=== PATIENT | female | born 1970 | race Caucasian/White ===

== ENCOUNTER → 2017-02-23 | Outpatient (CLI) | payer BC ==
[2017-02-23 16:42] LABS: Appearance,Urine Cloudy (Clear); Bacteria,Urine Occasional /hpf; Bilirubin,Urine Negative (Negative); Glucose,Urine (UA) Trace (Negative); Ketones,Urine Negative (Negative); Leukocyte Esterase,Urine Large (Negative); Mucus,Urine Rare /hpf; Nitrite,Urine Positive (Negative); PH, Urine 6.5 (5.0-8.0); Particle Count 11632; Protein,Urine Negative (Negative); RBC,Urine 5 /hpf (0-5); Specific Gravity,Urine 1.015 (1.001-1.035); Squamous Epithelial Cell,Urine 1 /hpf (0-4); UA Billing (MACRO vs. MICRO) MICRO; Urobilinogen,Urine <2.0 mg/dL (<2.0); WBC,Urine 25 /hpf (0-5)
[2017-02-24 07:01] LABS: HIV-1/HIV-2 Ab Screen NONREAC (NON REAC)
== END ==
LOC: LABWHC1 16:17
PROVIDERS: ATTEND Obstetrics & Gynecology
DX: R30.0 Dysuria (principal); Z11.3 Encounter for screening for infections with a predominantly sexual mode of transmission
CPT/HCPCS: 36415; 81001; 86780; 87077; 87086; 87186; 87389

== ENCOUNTER → 2018-05-19 | Outpatient (CLI) | payer BC ==
--- NOTE | 2018-05-21 10:36 | MM ---
Reason for exam: screening (asymptomatic). Last mammogram was performed 2 years and 3 months ago. History: Patient is nulliparous. Family history of breast cancer in mother at age 53. Silicone gel implants in both breasts, 2010. Retro-pectoral saline implants in both breasts, September 2003. Taking hormonal contraceptives for 16 years. Physical Findings: A clinical breast exam by your physician is recommended on an annual basis and results should be correlated with mammographic findings. MG 3D Screen Mammo Imp/Cad Bilateral CC, MLO, and ID view(s) were taken. Prior study comparison: February 20, 2016, bilateral MG 3d diag mammo imp w/cad [facility]. September 22, 2014, bilateral MG diagnostic mammo w CAD [facility]. The breast tissue is heterogeneously dense. This may lower the sensitivity of mammography. There is chronic nodularity in the left breast. Retropectoral silicone implants. No significant changes when compared with prior studies. ASSESSMENT: Negative, BI-RAD 1 RECOMMENDATION: Routine screening mammogram of both breasts in 1 year.
== END | disposition home or self-care (01) ==
LOC: RADMAMWWP 08:47
PROVIDERS: ATTEND Obstetrics & Gynecology
DX: Z12.31 Encounter for screening mammogram for malignant neoplasm of breast (principal)
CPT/HCPCS: 77063; 77067

== ENCOUNTER → 2019-08-17 | Outpatient (CLI) | payer BC ==
--- NOTE | 2019-08-18 14:37 | MM ---
Reason for exam: screening (asymptomatic). Last mammogram was performed 1 year and 3 months ago. History: Patient is nulliparous. Family history of breast cancer in mother at age 53. Silicone gel implants in both breasts, 2010. Retro-pectoral saline implants in both breasts, September 2003. Taking hormonal contraceptives for 16 years. Physical Findings: A clinical breast exam by your physician is recommended on an annual basis and results should be correlated with mammographic findings. MG 3D Screen Mammo Imp/Cad Bilateral CC, MLO, and ID view(s) were taken. Prior study comparison: May 19, 2018, bilateral MG 3d screen mammo imp/cad. February 20, 2016, bilateral MG 3d diag mammo imp w/cad [facility]. The breast tissue is extremely dense which could obscure a lesion on mammography. No suspicious abnormality. Bilateral retropectaol silicone implants. No significant changes when compared with prior studies. ASSESSMENT: Negative, BI-RAD 1 RECOMMENDATION: Routine screening mammogram of both breasts in 1 year.
== END | disposition home or self-care (01) ==
LOC: RADMAMWWP 08:33
PROVIDERS: ATTEND Obstetrics & Gynecology
DX: Z12.31 Encounter for screening mammogram for malignant neoplasm of breast (principal); Z98.82 Breast implant status
CPT/HCPCS: 77063; 77067

== ENCOUNTER → 2019-08-17 | Outpatient (CLI) | payer BC ==
[2019-08-17 08:58] LABS: Basophils % (A) 1 %; Eosinophils # (A) 0.2 k/uL (0-0.7); Eosinophils % (A) 3 %; HCT 44.2 % (34.0-46.0); HGB 14.4 gm/dL (11.4-16.0); Lymphocytes # (A) 1.9 k/uL (1.0-4.8); Lymphocytes % (A) 42 %; MCH 30.4 pg (25.0-35.0); MCHC 32.7 g/dL (31.0-37.0); MCV 93.2 fL (80.0-100.0); Mean Platelet Volume 6.1; Monocytes # (A) 0.3 k/uL (0-1.0); Monocytes % (A) 6 %; Neutrophils # (A) 2.1 k/uL (1.3-7.7); Neutrophils % (A) 46 %; Platelet Count 302 k/uL (150-450); RBC 4.74 m/uL (3.80-5.40); WBC 4.6 k/uL (3.8-10.6)
[2019-08-17 16:08] LABS: African American GFR (CKD) 99.6 (60.0-200.0); Albumin 4.1 g/dL (3.80-4.90); Albumin/Globulin Ratio 2.28 (1.60-3.17); BUN/Creat Ratio 16.25 Ratio (12.00-20.00); Calcium 9.2 mg/dL (8.7-10.3); Chol/HDL Ratio 2.07; Globulin 1.8 g/dL (1.6-3.3); Total Bilirubin 0.6 mg/dL (0.2-1.2); Total Protein 5.9 g/dL (6.2-8.2)
[2019-08-17 16:15] LABS: T4, Free (Free Thyroxine) 1.2 ng/dL (0.80-1.80)
[2019-08-17 17:42] LABS: Hemoglobin A1C 4.8 % (4.0-6.0)
== END | disposition home or self-care (01) ==
LOC: LABWHC1 08:16
PROVIDERS: ATTEND Internal Medicine Critical Care Medicine
DX: Z00.00 Encounter for general adult medical examination without abnormal findings (principal); J45.909 Unspecified asthma, uncomplicated
CPT/HCPCS: 36415; 80053; 80061; 82306; 83036; 84439; 84443; 85025

== ENCOUNTER → 2019-10-03 | Outpatient (CLI) | payer BC ==
[2019-10-03 10:18] LABS: Basophils % (A) 0 %; Eosinophils # (A) 0.1 k/uL (0-0.7); Eosinophils % (A) 3 %; HCT 40.9 % (34.0-46.0); Lymphocytes # (A) 1.7 k/uL (1.0-4.8); Lymphocytes % (A) 36 %; MCH 31.7 pg (25.0-35.0); MCHC 34.3 g/dL (31.0-37.0); MCV 92.3 fL (80.0-100.0); Mean Platelet Volume 5.7; Monocytes # (A) 0.3 k/uL (0-1.0); Monocytes % (A) 7 %; Neutrophils # (A) 2.4 k/uL (1.3-7.7); Neutrophils % (A) 52 %; Platelet Count 285 k/uL (150-450); RBC 4.43 m/uL (3.80-5.40); RDW 11.9 % (11.5-15.5); WBC 4.6 k/uL (3.8-10.6)
== END | disposition home or self-care (01) ==
LOC: LABWHC1 09:04
PROVIDERS: ATTEND Obstetrics & Gynecology
DX: Z01.812 Encounter for preprocedural laboratory examination (principal)
CPT/HCPCS: 36415; 85025; 93005

== ENCOUNTER 2019-10-11 06:36 | Day surgery (SDC) | payer BC ==
[2019-10-10 09:34] VITALS: BMI 21.0
--- NOTE | 2019-10-10 17:50 | P.HPOB ---
History of Present Illness H&P Date: 10/10/19 Chief Complaint: Menorrhagia, Family planning This is a 49 y.o. female, 0, who presents for laparoscopic tubal ligation via fulgaration for family planning along with a dilatation and curettage with hysteroscopy and Novasure endometrial ablation due to history of heavy menses when she is off of BCPs. She would like to go off of the pills due to concern for cancer. Ultrasound showed a uterus measuring 7.9 x 4 x 2.3 cm. Both ovaries were normal. OB Hx: G0. 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 History of 1 abnormal pap in 1995, s/p colposcopy & cryo. History of heavy crampy menses off of the pill. 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 Review of Systems Constitutional: Reports night sweats (occ), Denies chills, Denies fever Ears, nose, mouth and throat: Denies headache, Denies sore throat Cardiovascular: Denies chest pain, Denies shortness of breath Gastrointestinal: Reports bloating, Reports constipation, Denies abdominal pain, Denies diarrhea, Denies nausea, Denies vomiting Genitourinary: Reports dysmenorrhea, Reports urinary frequency, Reports vaginal dryness, Denies hematuria Menstruation: Reports period heavy (history) Musculoskeletal: Denies myalgias Integumentary: Denies pruritus, Denies rash Neurological: Denies numbness, Denies weakness Psychiatric: Reports anxiety, Reports insomnia Endocrine: Denies fatigue, Denies weight change Past Medical History Past Medical History: Asthma Additional Past Medical History / Comment(s): interstistial cystitis History of Any Multi-Drug Resistant Organisms: None Reported Past Surgical History: Breast Surgery (augmentation x 2), Orthopedic Surgery Additional Past Surgical History / Comment(s): torn cartilage rt wrist, 3 surgeries rt knee ACL repair,. D&C, maninder breast implants: D&C, hysteroscopy, attempted ablation-2013 Past Anesthesia/Blood Transfusion Reactions: Motion Sickness Past Psychological History: No Psychological Hx Reported Smoking Status: Never smoker Past Alcohol Use History: Rare Past Drug Use History: None Reported - Past Family History Mother Family Medical History: Cancer Additional Family Medical History / Comment(s): ovarian, colon, breast Father Family Medical History: Cancer Additional Family Medical History / Comment(s): pancreatic Medications and Allergies Home Medications Medication Instructions Recorded Confirmed Type Albuterol Inhaler [Ventolin 1 - 2 puff INHALATION Q6HR PRN 08/29/15 10/10/19 History Inhaler] Control 1 tab PO DAILY 08/29/15 10/10/19 History Calcium Carbonate [Calcium] 600 mg PO DAILY 08/29/15 10/10/19 History Pentosan Polysulfate Sodium 100 mg PO BID 10/10/19 10/10/19 History [Elmiron] Pilocarpine (Unkn Dose) 1 dose PO DAILY 10/10/19 10/10/19 History Allergies Allergy/AdvReac Type Severity Reaction Status Date / Time No Known Allergies Allergy Verified 10/10/19 09:24 Exam Osteopathic Statement: *. No significant issues noted on an osteopathic structural exam other than those noted in the History and Physical/Consult. Intake and Output 10/10/19 10/10/19 10/10/19 06:59 14:59 22:59 Other: Weight 52.163 kg HEENT: within normal limits Heart: regular rate and rhythm Lungs: clear to auscultation bilaterally Abdomen: soft, non-tender Pelvic exam: uterus anteverted, non-tender, no adnexal masses or tenderness noted. Extremities: neg. Homans. Assessment and Plan (1) Menorrhagia Status: Acute Code(s): N92.0 - EXCESSIVE AND FREQUENT MENSTRUATION WITH REGULAR CYCLE SNOMED Code(s): 943344190 (2) Family planning Status: Acute Code(s): Z30.09 - ENCOUNTER FOR OTH GENERAL CNSL AND ADVICE ON CONTRACEPTION SNOMED Code(s): 622305826 Plan: Proceed with dilatation and curettage, hysterosocpy, Novasure endometrial ablation with laparoscopic bilateral tubal ligation via fulgaration. I have discussed the risks, benefits, and alternative therapies for the above- mentioned procedure and for both sedation/anesthesia as well as necessary blood products administration, if indicated, as they pertain to this patient. The patient has indicated her understanding and acceptance of the risks and procedures discussed.
[~2019-10-11 06:36] MED LIST: DEXAMETHASONE SOD PHOSPHATE 10 MG/ML 1 ML VIAL IV ONE; HYDROmorphone 0.5 MG/0.5 ML SYRINGE IVP PRN; LACTATED RINGERS 1,000 ML IV SCH; LIDOCAINE 1% 20 ML VIAL (10MG/ML) FOR IV START INTRADERMA PRN; Pre Op ABX Message 1 EACH MISC MISCELLANE ONE
[2019-10-11 07:12] VITALS: RESP 16
[2019-10-11] MEDS: ONDANSETRON 4 MG/2 ML VIAL IVP ONE ×2 (07:14→09:50)
[2019-10-11] MEDS ORDERED: PROPOFOL 10 MG/ML 20 ML VIAL IV ONE (07:26)
[2019-10-11] MEDS ORDERED: KETOROLAC 30 MG/ML 1 ML VIAL ONE (07:26)
[2019-10-11] MEDS ORDERED: GLYCOPYRROLATE 0.2 MG/ML 2 ML VIAL ONE (07:26)
[2019-10-11] MEDS ORDERED: fentaNYL (PF) 50 MCG/ML 2 ML AMP ONE (07:26)
[2019-10-11] MEDS ORDERED: MIDAZOLAM 2 MG/2 ML VIAL ONE ×2 (07:26)
[2019-10-11] MEDS ORDERED: LIDOCAINE 1% INJ 10MG/ML (20 ML MDV) ONE (07:26)
[2019-10-11] MEDS ORDERED: NEOSTIGMINE 1 MG/ML 10 ML VIAL ONE (07:26)
[2019-10-11] MEDS ORDERED: ROCURONIUM BROMIDE 10 MG/ML 10 ML VIAL IV ONE (07:26)
[2019-10-11] MEDS ORDERED: BUPIVACAINE (PF) 0.25% 30 ML VIAL SQ ONE ×2 (08:16→08:24)
[2019-10-11] MEDS ORDERED: LACTATED RINGERS 1,000 ML IV ONE (08:28)
[2019-10-11 08:44] VITALS: TEMP 97
--- NOTE | 2019-10-11 09:09 | P.OP ---
Date of Procedure: 10/11/19 Preoperative Diagnosis: Menorrhagia Family planning Postoperative Diagnosis: Same Procedure(s) Performed: Dilation and curettage with hysteroscopy NovaSure endometrial ablation Laparoscopic bilateral tubal ligation via fulguration Anesthesia: VIVI Surgeon: Mery Mansfield Estimated Blood Loss (ml): 10 Pathology: other (Endometrial curettings) Condition: stable Disposition: same day Indications for Procedure: This is a 49 y.o. female, 0, who presents for laparoscopic tubal ligation via fulgaration for family planning along with a dilatation and curettage with hysteroscopy and Novasure endometrial ablation due to history of heavy menses when she is off of BCPs. She would like to go off of the pills due to concern for cancer. Ultrasound showed a uterus measuring 7.9 x 4 x 2.3 cm. Both ovaries were normal. Operative Findings: Uterus is sounded to 8 cm. Cervix is sounded to 3 cm. Upon hysteroscopy, several small polyps were visualized and a dyssynchronous endometrial pattern was noted. Minimal endometrial curettings were obtained. Normal uterus tubes and ovaries are noted. Appendix is visualized and appears normal. Description of Procedure: The patient is taken to the operating room. She is placed in the dorsal lithotomy position after general anesthesia was given. She is prepped and draped in the normal sterile fashion. Bladder is drained with a catheter and then removed. Pelvic exam is performed under anesthesia. Uterus is found to be anteverted with no adnexal masses. She is placed in slight Trendelenburg position. A right angle retractor is used to visualize the cervix. The anterio r lip of the cervix is grasped with a single-tooth tenaculum. Cervix is sounded to 3 cm. Uterus is sounded to 8 cm. Cervix is gently dilated with Preciado dilators until a hysteroscope could be passed. Hysteroscopy is performed using normal saline. The above noted findings are noted. Next a polyp forceps is introduced. Minimal tissue was obtained. Next medium-sized size sharp curette was placed. A minimal amount of endometrial curettings were obtained. Next NovaSure array was inserted into the endometrial cavity. Length was set at 5 cm and width was determined to be 2.3 cm. Since the width was under the lowest setting, the width was set at 2.5 cm on the machine. Next cavity assessment was completed and passed on the first try. Next NovaSure array was fired at 69 W for 66 seconds. Next the array was removed, inspected and then discarded. Next the hysteroscope was reinserted. Uniform charring was noted. Pictures were taken. Hysteroscope was removed. Single-tooth tenaculum was removed from the anterior lip of the cervix. Minimal bleeding was noted. All other instruments removed from the vagina. Sponge counts were correct. Patient is taken to recovery room in stable condition.
[2019-10-11 09:50] VITALS: PULSE 74
[2019-10-11 10:04] VITALS: BP 113/62
== END 2019-10-11 11:16 | disposition home or self-care (01) ==
LOC: OR 06:36
PROVIDERS: ATTEND Obstetrics & Gynecology
DX: N92.0 Excessive and frequent menstruation with regular cycle (principal); Z30.2 Encounter for sterilization; N30.10 Interstitial cystitis (chronic) without hematuria; J45.909 Unspecified asthma, uncomplicated; Z80.41 Family history of malignant neoplasm of ovary; Z80.0 Family history of malignant neoplasm of digestive organs; Z80.3 Family history of malignant neoplasm of breast; Z79.3 Long term (current) use of hormonal contraceptives; Z79.899 Other long term (current) drug therapy
CPT/HCPCS: 81025; 88305; 58563; 58670; J2250; J1100; J2710; J2405; J2001; J3010; J1885; J2704

== ENCOUNTER 2019-10-11 16:30 | Emergency (ER) | payer BC ==
[2019-10-11 16:44] VITALS: RESP 18
[2019-10-11] MEDS ORDERED: methylPREDNISolone SOD SUCCI 125 MG/2 ML VIAL IV STA (17:46)
[2019-10-11] MEDS ORDERED: HYDROmorphone 0.5 MG/0.5 ML SYRINGE IVP STA (17:46)
[2019-10-11] MEDS ORDERED: SODIUM CHLORIDE 0.9% 1,000 ML IV STA (17:46)
[2019-10-11] MEDS ORDERED: diphenhydrAMINE 50 MG/ML 1 ML VIAL IVP STA (17:46)
--- NOTE | 2019-10-11 19:35 | ED ---
General Adult HPI - General Chief complaint: Urogenital Stated complaint: Post surgery/poss allergic from the prep/very pain Time Seen by Provider: 10/11/19 17:25 Source: patient, RN notes reviewed, old records reviewed Mode of arrival: wheelchair Limitations: no limitations - History of Present Illness Initial comments: 49-year-old female patient presents to ED for chief complaint of external vaginal burning. Patient reports that this morning she had a tubal ligation, uterine ablation and D&C. Patient reports that as a progress she's been having lots of burning and discomfort around her perivaginal region. Denies any other complaints at this time. Systemic: Pt denies fatigue, fever/chills, rash. Pt denies weakness, night sweats, weight loss. Neuro: Pt denies headache, visual disturbances, syncope or pre-syncope. HEENT: Pt denies ocular discharge or irritation, otalgia, rhinorrhea, pharyngitis or notable lymphadenopathy. Cardiopulmonary: Pt denies chest pain, SOB, heart palpitations, dyspnea on exertion. Abdominal/GI: Pt denies abdominal pain, n/v/d. : Pt denies dysuria, burning w/ urination, frequency/urgency. Denies new onset urinary or bowel incontinence. MSK: Pt denies myalgia, loss of strength or function in extremities. Neuro: Pt denies new onset weakness, paresthesias. - Related Data Home Medications Medication Instructions Recorded Confirmed Albuterol Inhaler [Ventolin 1 - 2 puff INHALATION Q6HR PRN 08/29/15 10/11/19 Inhaler] Control 1 tab PO DAILY 08/29/15 10/11/19 Calcium Carbonate [Calcium] 600 mg PO DAILY 08/29/15 10/11/19 Pentosan Polysulfate Sodium 100 mg PO BID 10/10/19 10/11/19 [Elmiron] Pilocarpine (Unkn Dose) 1 dose PO DAILY 10/10/19 10/11/19 Previous Rx's Medication Instructions Recorded HYDROcodone/APAP 5-325MG [Datto 1 tab PO Q4HR PRN 3 Days #18 tab 10/11/19 5-325] predniSONE 50 mg PO DAILY #4 tab 10/11/19 Allergies Allergy/AdvReac Type Severity Reaction Status Date / Time No Known Allergies Allergy Verified 10/11/19 16:44 Review of Systems ROS Statement: Those systems with pertinent positive or pertinent negative responses have been documented in the HPI. ROS Other: All systems not noted in ROS Statement are negative. Past Medical History Past Medical History: Asthma History of Any Multi-Drug Resistant Organisms: None Reported Past Surgical History: Ablation, Orthopedic Surgery, Tubal Ligation Past Psychological History: No Psychological Hx Reported Smoking Status: Never smoker Past Alcohol Use History: None Reported Past Drug Use History: None Reported General Exam - General Exam Comments Initial Comments: Constitutional: NAD, AOX3, Pt has pleasant affect. HEENT: NC/AT, trachea midline, neck supple, no lymphadenopathy. Posterior pharynx non erythematous, without exudates. External ears appear normal, without discharge. Mucous membranes moist. Eyes PERRLA, EOM intact. There is no scleral icterus. No pallor noted. Cardiopulmonary: RRR, no murmurs, rubs or gallops, no JVD noted. Lungs CTAB in anterior and posterior luna. No peripheral edema. Abdominal exam: Abdomen soft and non-distended. Abdomen mild tender around the incision sites. Clean dry, non-erythematous, no discharge. Bowel sounds active in LLQ. No hepatosplenomegaly. No ecchymosis Neuro: CN II-XII grossly intact. No nuchal rigidity. No raccon eyes, no glynn sign, no hemotympanum. No cervical spinal tenderness. MSK: No posterior calf tenderness bilaterally, homans sign negative bilaterally. Posterior tibialis and radial pulse +2 bilaterally. Sensation intact in upper and lower extremities. Full active ROM in upper and lower extremities, 5/5 stregnth. : External vaginal exam displayed mild amount of edema, erythema. No drainage, nontender to palpation. Chaperoned by ANGELIKA Blevins. Limitations: no limitations Course Vital Signs 10/11/19 16:41 Temperature 97.8 F Pulse Rate 70 Respiratory 18 Rate Blood Pressure 134/69 O2 Sat by Pulse 99 Oximetry Medical Decision Making - Medical Decision Making 49-year-old female patient presents to ED for painful burning around vaginal region following procedure earlier today. Patient will signs stable, afebrile. External vaginal exam displayed mild erythema, edema. Patient with a sprain. Contact dermatitis-like syndrome after the ChloraPrep was used. Patient feeling much improved with steroids, Benadryl, analgesia. Patient will be discharged per steroid treatment. Will follow up with primary care provider tomorrow and will return to ER if condition worsens. Case discussed with Dr. Powers. Disposition Clinical Impression: Contact dermatitis Disposition: HOME SELF-CARE Condition: Stable Instructions (If sedation given, give patient instructions): Contact Dermatitis (ED) Additional Instructions: Follow-up with Dr. Mansfield tomorrow. Use Benadryl as needed for symptoms. Take steroids as directed. Return to ER if condition worsens in any way. Prescriptions: predniSONE 50 mg PO DAILY #4 tab Is patient prescribed a controlled substance at d/c from ED?: No Referrals: Deandre Stanley DO [Primary Care Provider] - 1-2 days
[2019-10-11 20:56] VITALS: BP 124/87; PULSE 87; TEMP 98
== END 2019-10-11 20:56 | disposition home or self-care (01) ==
LOC: EC 16:30
DX: L25.9 Unspecified contact dermatitis, unspecified cause (principal); J45.909 Unspecified asthma, uncomplicated; Z79.3 Long term (current) use of hormonal contraceptives; Z79.51 Long term (current) use of inhaled steroids; Z98.51 Tubal ligation status; Z98.890 Other specified postprocedural states
CPT/HCPCS: 99284; 96374; 96375 ×2; 96361 ×2; J1200; J2930; J1170

== ENCOUNTER → 2020-10-31 | Outpatient (CLI) | payer BC ==
[2020-10-31 09:27] LABS: Basophils % (A) 0 %; Eosinophils # (A) 0.1 k/uL (0-0.7); Eosinophils % (A) 5 %; HCT 40.4 % (34.0-46.0); HGB 13.9 gm/dL (11.4-16.0); Lymphocytes # (A) 1.4 k/uL (1.0-4.8); Lymphocytes % (A) 47 %; MCH 31.3 pg (25.0-35.0); MCHC 34.5 g/dL (31.0-37.0); MCV 90.7 fL (80.0-100.0); Mean Platelet Volume 6.5; Monocytes # (A) 0.3 k/uL (0-1.0); Monocytes % (A) 9 %; Neutrophils # (A) 1.1 k/uL (1.3-7.7); Neutrophils % (A) 37 %; Platelet Count 238 k/uL (150-450); RBC 4.45 m/uL (3.80-5.40); RDW 11.7 % (11.5-15.5); WBC 3.1 k/uL (3.8-10.6)
[2020-10-31 09:50] LABS: T4, Free (Free Thyroxine) 0.89 ng/dL (0.78-2.19)
--- NOTE | 2020-11-05 11:16 | MM ---
Reason for exam: screening (asymptomatic). Last mammogram was performed 1 year and 2 months ago. History: Patient is nulliparous. Family history of breast cancer in mother at age 53. Silicone gel implants in both breasts, 2010. Retro-pectoral saline implants in both breasts, September 2003. Taking hormonal contraceptives for 16 years. Physical Findings: A clinical breast exam by your physician is recommended on an annual basis and results should be correlated with mammographic findings. MG 3D Screen Mammo Imp/Cad Bilateral CC and MLO view(s) were taken. Prior study comparison: August 17, 2019, bilateral MG 3d screen mammo imp/cad. May 19, 2018, bilateral MG 3d screen mammo imp/cad. The breast tissue is heterogeneously dense. This may lower the sensitivity of mammography. There is chronic nodularity in the left breast. Retropectoral silicone implants. No significant changes when compared with prior studies. ASSESSMENT: Negative, BI-RAD 1 RECOMMENDATION: Routine screening mammogram of both breasts in 1 year.
== END | disposition home or self-care (01) ==
LOC: RADMAMWWP 08:45
PROVIDERS: ATTEND Obstetrics & Gynecology
DX: Z12.31 Encounter for screening mammogram for malignant neoplasm of breast (principal); Z98.82 Breast implant status; J45.909 Unspecified asthma, uncomplicated; Z79.899 Other long term (current) drug therapy
CPT/HCPCS: 77063; 77067; 82306; 82947; 83036; 84439; 84443; 85025

== ENCOUNTER → 2020-11-29 | Outpatient (CLI) | payer BC ==
[2020-11-29 10:01] LABS: HCT 40.4 % (34.0-46.0); HGB 13.8 gm/dL (11.4-16.0); MCH 31.1 pg (25.0-35.0); MCHC 34.1 g/dL (31.0-37.0); MCV 91.2 fL (80.0-100.0); Mean Platelet Volume 6.5; Platelet Count 238 k/uL (150-450); RBC 4.43 m/uL (3.80-5.40); RDW 11.7 % (11.5-15.5); WBC 3.5 k/uL (3.8-10.6)
== END | disposition home or self-care (01) ==
LOC: LABWHC1 09:14
PROVIDERS: ATTEND Obstetrics & Gynecology
DX: D72.819 Decreased white blood cell count, unspecified (principal)
CPT/HCPCS: 36415; 85027

== ENCOUNTER → 2021-12-11 | Outpatient (CLI) | payer BC ==
--- NOTE | 2021-12-12 12:31 | MM ---
Reason for exam: screening (asymptomatic). Last mammogram was performed 1 year and 1 month ago. History: Patient is nulliparous. Family history of breast cancer in mother at age 53. Silicone gel implants in both breasts, 2010. Retro-pectoral saline implants in both breasts, September 2003. Taking hormonal contraceptives for 16 years. Physical Findings: A clinical breast exam by your physician is recommended on an annual basis and results should be correlated with mammographic findings. MG 3D Screen Mammo Imp/Cad Bilateral CC, MLO, and ID view(s) were taken. Prior study comparison: October 31, 2020, bilateral MG 3d screen mammo imp/cad. August 17, 2019, bilateral MG 3d screen mammo imp/cad. The breast tissue is extremely dense which could obscure a lesion on mammography. There are benign appearing round calcifications bilaterally. There is no discrete abnormality. ASSESSMENT: Benign, BI-RAD 2 RECOMMENDATION: Routine screening mammogram of both breasts in 1 year.
== END | disposition home or self-care (01) ==
LOC: RADMAMWWP 13:43
PROVIDERS: ATTEND Obstetrics & Gynecology
DX: Z12.31 Encounter for screening mammogram for malignant neoplasm of breast (principal); Z80.3 Family history of malignant neoplasm of breast
CPT/HCPCS: 77063; 77067

== ENCOUNTER → 2023-05-06 | Outpatient (CLI) | payer BC | END | disposition home or self-care (01) | LOC: CANPRECLI → RADMRIMAIN 20:15 | PROVIDERS: ATTEND Internal Medicine Critical Care Medicine | DX: Z53.9 Procedure and treatment not carried out, unspecified reason (principal) | CPT/HCPCS: 72156; 72157 ==

== ENCOUNTER → 2024-02-04 | Outpatient (CLI) | payer BC ==
--- NOTE | 2024-02-04 13:21 | MM ---
Reason for Exam: Screening (asymptomatic). Last mammogram was performed 1 year(s) and 2 month(s) ago. Patient History: Menarche at age 12. Patient has no children. Postmenopausal. Patient used Hormonal Contraceptives for 16 years. 2010, Bilateral Implants. 09/2003, Bilateral Implants. Mother had breast cancer, age 53. Risk Values: Diana 5 year model risk: 2.2%. NCI Lifetime model risk: 15.8%. Prior Study Comparison: 10/31/2020 Bilateral Screening Mammogram, [facility]. 12/11/2021 Bilateral Screening Mammogram, [facility]. 12/12/2022 Bilateral MG 3D screen mammo imp/cad., [facility]. Tissue Density: The breasts are heterogeneously dense, which may obscure small masses. Findings: Analyzed By CAD. There is no suspicious group of microcalcifications or new suspicious mass in either breast. Bilateral implants are intact. Overall Assessment: Benign, BI-RAD 2 Management: Screening Mammogram of both breasts in 1 year. . Patient should continue monthly self-breast exams. A clinical breast exam by your physician is recommended on an annual basis. This exam should not preclude additional follow-up of suspicious palpable abnormalities. Note on Diana scores and lifetime risk: 1. A Diana score greater than 3% is considered moderate risk. If this is the case, consider specialist referral to assess eligibility for a risk reducing agent. 2. If overall lifetime risk for the development of breast cancer is 20% or higher, the patient may qualify for future screening with alternating mammogram and breast MRI. Electronically signed and approved by: Wicho Israel M.D. Radiologis
== END | disposition home or self-care (01) ==
LOC: RADMAMWWP 07:58
PROVIDERS: ATTEND Obstetrics & Gynecology
DX: Z12.31 Encounter for screening mammogram for malignant neoplasm of breast (principal); Z80.3 Family history of malignant neoplasm of breast; Z78.0 Asymptomatic menopausal state; Z98.82 Breast implant status
CPT/HCPCS: 77063; 77067

== ENCOUNTER → 2025-05-12 | Outpatient (CLI) | payer BC ==
--- NOTE | 2025-05-12 08:59 | MM ---
Reason for Exam: Hx of breast augmentation, asymptomatic. Last mammogram was performed 1 year(s) and 3 month(s) ago. Patient History: Menarche at age 12. Patient has no children. Postmenopausal. Currently using Hormonal Contraceptives, for 16 years. 2010, Bilateral Implants. 09/2003, Bilateral Implants. Mother had breast cancer, age 53. Risk Values: Diana 5 year model risk: 2.3%. NCI Lifetime model risk: 15.5%. Prior Study Comparison: 12/11/2021 Bilateral Screening Mammogram, [facility]. 12/12/2022 Bilateral MG 3D screen mammo imp/cad., [facility]. 02/04/2024 Bilateral MG 3D screen mammo imp/cad., [facility]. Tissue Density: The breasts are heterogeneously dense, which may obscure small masses. Findings: Analyzed By CAD. Bilateral breast implants redemonstrated. Prominent lymph node in the left axilla again seen. There is no suspicious group of microcalcifications or new suspicious mass in either breast. Overall Assessment: Benign, BI-RAD 2 Management: Screening Mammogram of both breasts in 1 year. . Patient should continue monthly self-breast exams. A clinical breast exam by your physician is recommended on an annual basis. This exam should not preclude additional follow-up of suspicious palpable abnormalities. Note on Diana scores and lifetime risk: 1. A Diana score greater than 3% is considered moderate risk. If this is the case, consider specialist referral to assess eligibility for a risk reducing agent. 2. If overall lifetime risk for the development of breast cancer is 20% or higher, the patient may qualify for future screening with alternating mammogram and breast MRI. [facility], , 05/12/2025 8:56 AM. Electronically signed and approved by: Sonny Martins M.D.
== END | disposition home or self-care (01) ==
LOC: RADMAMWWP 07:33
PROVIDERS: ATTEND Obstetrics & Gynecology
DX: Z12.31 Encounter for screening mammogram for malignant neoplasm of breast (principal); R92.333 Mammographic heterogeneous density, bilateral breasts; Z78.0 Asymptomatic menopausal state; Z80.3 Family history of malignant neoplasm of breast; Z79.3 Long term (current) use of hormonal contraceptives; Z98.82 Breast implant status
CPT/HCPCS: 77063; 77067